=== PATIENT | female | born 1980 | race Hispanic/Latino ===

== ENCOUNTER → 2019-04-13 | Outpatient (REF) | payer OTHER ==
[~2019-04-13] MED LIST: COLA100C5 PO; FERR325T3 PO; IBUP-1114 PO; OXYC1TAB23 PO; PRENTAB55 PO
[2019-04-13 19:58] LABS: INFLUENZA A AMPLIFICATION POSITIVE (NEGATIVE); INFLUENZA B AMPLIFICATION NEGATIVE (NEGATIVE)
== END ==
LOC: M LAB REF 19:06
PROVIDERS: ATTEND Physician Assistant
DX: R50.9 Fever, unspecified (principal); R05 Cough

== ENCOUNTER 2021-11-06 07:13 | Outpatient (CLI) | payer OTHER ==
[~2021-11-06] VITALS: Ht 162.6 cm; Wt 100.0 kg
[~2021-11-06 07:13] MED LIST changes: +ALBUTEROL SULFATE 2.5 MG/0.5 ML INH NEB SOLN INH PRN; +EPINEPHrine INJ 1 MG/ML 1ML AMP IM PRN; +IRON SUCROSE 200 MG in NS 100 ML OVER 1 HR IV ONE; +NS 1,000 ML IV SCH; +diphenhydrAMINE 50MG/ML VIAL (J1200) IV PRN; +methylPREDNISolone 125MG 2ML VIAL IV PRN
[2021-11-06 07:33] VITALS: BP 113/59
[2021-11-06 09:28] VITALS: BP 122/68
== END 2021-11-06 09:29 ==
LOC: M INFU 07:13
PROVIDERS: ATTEND Student in an Organized Health Care Education/Training Program
DX: D50.0 Iron deficiency anemia secondary to blood loss (chronic) (principal); Z88.1 Allergy status to other antibiotic agents
CPT/HCPCS: 96365; J1756

== ENCOUNTER 2021-11-13 07:25 | Outpatient (CLI) | payer OTHER ==
[~2021-11-13] VITALS: Ht 162.6 cm; Wt 101.0 kg
[2021-11-13 07:30] VITALS: BP 135/63
[2021-11-13 09:15] VITALS: BP 145/68
== END 2021-11-13 09:10 | disposition home or self-care (01) ==
LOC: M INFU 07:25
PROVIDERS: ATTEND Student in an Organized Health Care Education/Training Program
DX: D50.0 Iron deficiency anemia secondary to blood loss (chronic) (principal); Z88.1 Allergy status to other antibiotic agents
CPT/HCPCS: 96365; J1756

== ENCOUNTER 2021-11-20 07:15 | Outpatient (CLI) | payer OTHER ==
[~2021-11-20] VITALS: Ht 193 cm; Wt 101.0 kg
[2021-11-20 07:20] VITALS: BP 133/69
== END 2021-11-20 08:57 | disposition home or self-care (01) ==
LOC: M INFU 07:15
PROVIDERS: ATTEND Student in an Organized Health Care Education/Training Program
DX: D50.0 Iron deficiency anemia secondary to blood loss (chronic) (principal); Z88.1 Allergy status to other antibiotic agents
CPT/HCPCS: 96365; J1756

== ENCOUNTER 2021-11-28 10:00 | Outpatient (CLI) | payer OTHER ==
[~2021-11-28] VITALS: Ht 162.6 cm; Wt 101.0 kg
[2021-11-28 10:06] VITALS: BP 136/73
[2021-11-28 11:28] VITALS: BP 124/58
== END 2021-11-28 11:50 | disposition home or self-care (01) ==
LOC: M INFU 10:00
PROVIDERS: ATTEND Student in an Organized Health Care Education/Training Program
DX: D50.0 Iron deficiency anemia secondary to blood loss (chronic) (principal); Z88.1 Allergy status to other antibiotic agents
CPT/HCPCS: 96365; J1756

== ENCOUNTER 2021-12-04 07:00 | Outpatient (CLI) | payer OTHER ==
[~2021-12-04] VITALS: Ht 162.6 cm; Wt 101.0 kg
[~2021-12-04 07:00] MED LIST changes: -ALBUTEROL SULFATE 2.5 MG/0.5 ML INH NEB SOLN INH PRN; -EPINEPHrine INJ 1 MG/ML 1ML AMP IM PRN; -diphenhydrAMINE 50MG/ML VIAL (J1200) IV PRN; -methylPREDNISolone 125MG 2ML VIAL IV PRN
[2021-12-04] MEDS ORDERED: diphenhydrAMINE 50MG/ML VIAL (J1200) IV PRN (07:01)
[2021-12-04] MEDS ORDERED: ALBUTEROL SULFATE 2.5 MG/0.5 ML INH NEB SOLN INH PRN (07:01)
[2021-12-04] MEDS ORDERED: EPINEPHrine INJ 1 MG/ML 1ML AMP IM PRN (07:01)
[2021-12-04] MEDS ORDERED: methylPREDNISolone 125MG 2ML VIAL IV PRN (07:01)
[2021-12-04 07:35] VITALS: BP 105/54
[2021-12-04 09:00] VITALS: BP 129/62
== END 2021-12-04 09:00 | disposition home or self-care (01) ==
LOC: M INFU 07:00
PROVIDERS: ATTEND Student in an Organized Health Care Education/Training Program
DX: D50.0 Iron deficiency anemia secondary to blood loss (chronic) (principal); Z88.1 Allergy status to other antibiotic agents
CPT/HCPCS: 96365; J1756

== ENCOUNTER → 2023-04-16 | Outpatient (CLI) | payer OTHER ==
[~2023-04-16] MED LIST changes: -IRON SUCROSE 200 MG in NS 100 ML OVER 1 HR IV ONE; -NS 1,000 ML IV SCH
[2023-04-16 10:56] LABS: BASO % 0.2 % (0.0-1.0); EOS # 0.1 10^3/uL (0.0-0.5); EOS % 1.7 % (0.0-3.0); HEMOGLOBIN 7.9 g/dl (12.0-15.5); LYMPH # 2.6 10^3/uL (1.5-5.0); LYMPH % 44.5 % (24.0-44.0); MEAN CORPUSCULAR HEMOGLOBIN 17.4 pg (27.0-33.0); MEAN CORPUSCULAR HGB CONC 28.2 g/dl (32.0-36.5); MEAN CORPUSCULAR VOLUME 61.7 fl (80.0-96.0); MONO # 0.6 10^3/uL (0.0-0.8); MONO % 9.6 % (2.0-8.0); NEUTROPHILS # 2.5 10^3/uL (1.5-8.5); NEUTROPHILS % 43.7 % (36.0-66.0); PLATELET COUNT, AUTOMATED 332 10^3/uL (150-450); RED BLOOD COUNT 4.54 10^6/uL (4.00-5.40); WHITE BLOOD COUNT 5.8 10^3/uL (4.0-10.0)
[2023-04-16 11:24] LABS: ALBUMIN 3.4 G/DL (3.2-5.2); ALKALINE PHOSPHATASE 109 U/L (46-116); ALT/SGPT 55 U/L (7.0-40); AST/SGOT 29 U/L (<34); BILIRUBIN,TOTAL 0.4 MG/DL (0.3-1.2); BLOOD UREA NITROGEN 10 MG/DL (9-23); CALCIUM LEVEL 8.9 MG/DL (8.5-10.1); CARBON DIOXIDE LEVEL 28 MMOL/L (20-31); CHLORIDE LEVEL 106 MMOL/L (98-107); CREATININE FOR GFR 0.53 MG/DL (0.55-1.30); FREE T4 1.31 NG/DL (0.89-1.76); GLOMERULAR FILTRATION RATE > 60.0 (>58); GLUCOSE, FASTING 98 MG/DL (60-100); IRON (FE) 10 UG/DL (50-170); PERCENT SATURATION 2.4 % (13.2-45.0); POTASSIUM SERUM 4.5 MMOL/L (3.5-5.1); SODIUM LEVEL 137 MMOL/L (136-145); THYROID STIMULATING HORMONE 1.004 uIU/ML (0.55-4.78); TOTAL IRON BINDING CAPACITY 415 UG/DL (250-425)
[2023-04-16 11:25] LABS: FOLATE 16.1 NG/ML (>5.4)
[2023-04-16 11:26] LABS: VITAMIN B12 LEVEL 348 PG/ML (211-911)
== END ==
LOC: M RAD 07:36
PROVIDERS: ATTEND Nurse Practitioner Adult Health
DX: S46.012A Strain of muscle(s) and tendon(s) of the rotator cuff of left shoulder, initial encounter (principal); N92.0 Excessive and frequent menstruation with regular cycle; D50.9 Iron deficiency anemia, unspecified; M77.8 Other enthesopathies, not elsewhere classified; R93.89 Abnormal findings on diagnostic imaging of other specified body structures; X58.XXXA Exposure to other specified factors, initial encounter; Y92.9 Unspecified place or not applicable; Y93.9 Activity, unspecified; Y99.9 Unspecified external cause status

== ENCOUNTER → 2023-04-23 | Outpatient (CLI) | payer OTHER | LOC: M LAB 09:26 | PROVIDERS: ATTEND Nurse Practitioner Adult Health | DX: D64.9 Anemia, unspecified (principal) ==

== ENCOUNTER → 2023-04-24 | Outpatient (CLI) | payer OTHER ==
[2023-04-24] VITALS (7 sets, daily range): BP systolic 116–144; BP diastolic 57–79; TEMP 97.3–98; O2SAT 97–100
[~2023-04-24] VITALS: Ht 157.5 cm; Wt 104.5 kg
[~2023-04-24] MED LIST changes: +NS 250 ML IV ONE
== END ==
LOC: M INFU 06:57
PROVIDERS: ATTEND Nurse Practitioner Adult Health
DX: D64.9 Anemia, unspecified (principal); Z88.1 Allergy status to other antibiotic agents
CPT/HCPCS: 36430; 86920; 96360; 96361; P9016

== ENCOUNTER 2023-04-29 07:30 | Outpatient (CLI) | payer OTHER ==
[~2023-04-29] VITALS: Ht 157.5 cm; Wt 105.0 kg
[~2023-04-29 07:30] MED LIST changes: +FERRIC CARBOXYMALTOSE INJ 750 MG in NS 250 ML (>50kg) IV ONE; -NS 250 ML IV ONE
[2023-04-29 07:48] VITALS: BP 133/74; O2SAT 98
[2023-04-29 09:08] VITALS: BP 149/70; O2SAT 100
== END 2023-04-29 09:10 ==
LOC: M INFU 07:30
PROVIDERS: ATTEND Nurse Practitioner Adult Health
DX: D50.9 Iron deficiency anemia, unspecified (principal); Z88.1 Allergy status to other antibiotic agents
CPT/HCPCS: 96365; J1439

== ENCOUNTER 2023-05-06 07:40 | Outpatient (CLI) | payer OTHER ==
[~2023-05-06] VITALS: Ht 157.5 cm; Wt 102.3 kg
[~2023-05-06 07:40] MED LIST changes: -FERRIC CARBOXYMALTOSE INJ 750 MG in NS 250 ML (>50kg) IV ONE
[2023-05-06] MEDS: FERRIC CARBOXYMALTOSE INJ 750 MG in NS 250 ML (>50kg) IV ONE (07:55)
[2023-05-06 08:02] VITALS: BP 132/60; O2SAT 100
[2023-05-06 09:15] VITALS: BP 134/79; O2SAT 100
== END 2023-05-06 09:15 | disposition home or self-care (01) ==
LOC: M INFU 07:40
PROVIDERS: ATTEND Nurse Practitioner Adult Health
DX: D50.9 Iron deficiency anemia, unspecified (principal); Z88.1 Allergy status to other antibiotic agents
CPT/HCPCS: 96365; J1439

== ENCOUNTER 2023-12-03 08:05 | Day surgery (SDC) | payer OTHER ==
[~2023-12-03] VITALS: Ht 160 cm; Wt 111.6 kg
[2023-12-03 08:37] LABS: HEMATOCRIT 38.2 % (36.0-47.0); HEMOGLOBIN 12.1 g/dl (12.0-15.5); MEAN CORPUSCULAR HEMOGLOBIN 24.3 pg (27.0-33.0); MEAN CORPUSCULAR HGB CONC 31.7 g/dl (32.0-36.5); MEAN CORPUSCULAR VOLUME 76.7 fl (80.0-96.0); PLATELET COUNT, AUTOMATED 250 10^3/uL (150-450); RED BLOOD COUNT 4.98 10^6/uL (4.00-5.40); WHITE BLOOD COUNT 8.6 10^3/uL (4.0-10.0)
[2023-12-03] MEDS ORDERED: fentaNYL 100 MCG/2 ML INJECTION As Ordered ONE (08:49)
[2023-12-03] MEDS ORDERED: propofoL 200 MG/20 ML VIAL As Ordered ONE (08:50)
[2023-12-03] MEDS ORDERED: LIDOCAINE 2% 100MG/5ML SDV (FOR ANES.) As Ordered ONE (08:50)
[2023-12-03] MEDS ORDERED: ACETAMINOPHEN 1000MG 100ML IV BAG As Ordered ONE (08:50)
[2023-12-03] MEDS ORDERED: MIDAZOLAM INJ 2MG/2ML VIAL As Ordered ONE (08:50)
[2023-12-03] MEDS: SILVER NITRATE APPLICATOR (1 = QTY 10) As Ordered ONE (09:15)
[2023-12-03] MEDS ORDERED: ONDANSETRON 4MG 2ML VIAL As Ordered ONE (09:40)
[2023-12-03] MEDS ORDERED: KETOROLAC 60MG 2ML VIAL As Ordered ONE (09:40)
[2023-12-03] MEDS ORDERED: oxyCODONE 5MG TAB PO PRN (10:15)
[2023-12-03] MEDS ORDERED: ONDANSETRON 4MG 2ML VIAL IV PRN (10:15)
[2023-12-03] MEDS ORDERED: fentaNYL 100 MCG/2 ML INJECTION IV PRN (10:15)
[2023-12-03] MEDS ORDERED: IBUP80TA PO (10:21)
[2023-12-03 11:12] VITALS: BP 125/66; TEMP 97.7; O2SAT 99
== END 2023-12-03 11:35 | disposition home or self-care (01) ==
LOC: M SDC 08:05
PROVIDERS: ATTEND Obstetrics & Gynecology
DX: N84.0 Polyp of corpus uteri (principal); N93.9 Abnormal uterine and vaginal bleeding, unspecified; Z88.1 Allergy status to other antibiotic agents
CPT/HCPCS: 36415; 58558; 81025; 85027; 86850; 86900; 86901; 88305; J0131; J1100; J1885; J2250; J2405; J3010

== ENCOUNTER → 2024-07-03 | Outpatient (CLI) | payer OTHER ==
[~2024-07-03] VITALS: Ht 160 cm; Wt 104.5 kg
[~2024-07-03] MED LIST changes: +ALBUTEROL SULFATE 2.5MG/0.5ML INH CONCENTRATE NEB SOLN INH PRN; +EPINEPHrine INJ 1 MG/ML 1ML AMP IM PRN; +IBUP80TA PO; +diphenhydrAMINE 50MG/ML VIAL IV PRN; +methylPREDNISolone 125MG 2ML VIAL IV PRN
[2024-07-03 07:45] VITALS: BP 109/55; O2SAT 100
[2024-07-03] MEDS: FERRIC CARBOXYMALTOSE 750 MG (VIAL MATE) IN 100ML NS IV ONE (07:49)
[2024-07-03 08:30] VITALS: BP 124/60; O2SAT 99
== END ==
LOC: M INFU 07:36
PROVIDERS: ATTEND Nurse Practitioner Adult Health
DX: D50.9 Iron deficiency anemia, unspecified (principal); Z88.1 Allergy status to other antibiotic agents
CPT/HCPCS: 96365; J1439

== ENCOUNTER 2024-07-14 07:28 | Outpatient (CLI) | payer OTHER ==
[2024-07-14 07:35] VITALS: BP 129/78; O2SAT 97
[2024-07-14] MEDS: FERRIC CARBOXYMALTOSE 750 MG (VIAL MATE) IN 100ML NS IV ONE (08:00)
[2024-07-14 08:15] VITALS: BP 128/74; O2SAT 100
== END 2024-07-14 08:18 ==
LOC: M INFU 07:28
PROVIDERS: ATTEND Nurse Practitioner Adult Health
DX: D50.9 Iron deficiency anemia, unspecified (principal); Z88.1 Allergy status to other antibiotic agents
CPT/HCPCS: 96365; J1439

== ENCOUNTER 2024-12-17 07:53 | Outpatient (CLI) | payer OTHER ==
[~2024-12-17] VITALS: Ht 160 cm; Wt 107.0 kg
[~2024-12-17 07:53] MED LIST changes: +ALBUTEROL SULFATE 2.5 MG/0.5 ML INH CONCENTRATE NEB SOLN INH PRN; -ALBUTEROL SULFATE 2.5MG/0.5ML INH CONCENTRATE NEB SOLN INH PRN; +diphenhydrAMINE 50 MG/ML VIAL IV PRN; -diphenhydrAMINE 50MG/ML VIAL IV PRN; -methylPREDNISolone 125MG 2ML VIAL IV PRN
[2024-12-17 08:20] VITALS: BP 115/57; O2SAT 100
[2024-12-17] MEDS: FERRIC CARBOXYMALTOSE 750 MG (VIAL MATE) IN 100ML NS IV ONE (08:34)
[2024-12-17 09:00] VITALS: BP 110/52; O2SAT 100
== END 2024-12-17 09:00 ==
LOC: M INFU 07:53
PROVIDERS: ATTEND Family Medicine
DX: D50.9 Iron deficiency anemia, unspecified (principal); Z88.1 Allergy status to other antibiotic agents
CPT/HCPCS: 96365; J1439

== ENCOUNTER 2024-12-24 08:09 | Outpatient (CLI) | payer OTHER ==
[2024-12-24 08:45] VITALS: BP 106/61; O2SAT 100
[2024-12-24] MEDS: FERRIC CARBOXYMALTOSE 750 MG (VIAL MATE) IN 100ML NS IV ONE (09:29)
[2024-12-24 09:46] VITALS: BP 115/55; O2SAT 99
== END 2024-12-24 09:48 | disposition home or self-care (01) ==
LOC: M INFU 08:09
PROVIDERS: ATTEND Family Medicine
DX: D50.9 Iron deficiency anemia, unspecified (principal); Z88.1 Allergy status to other antibiotic agents
CPT/HCPCS: 96365; J1439